=== PATIENT | female | born 1965 | race Two or more races ===

== ENCOUNTER 2024-05-02 14:01 | Outpatient (CLI) | payer OTHER ==
[~2024-05-02 14:01] MED LIST: ETODOLAC500 MG PO
== END 2024-05-02 14:03 | disposition home or self-care (01) ==
LOC: RAD 14:01
PROVIDERS: ATTEND Orthopaedic Surgery
DX: M25.551 Pain in right hip (principal); M25.552 Pain in left hip